=== PATIENT | female | born 1985 | race African-American/Black ===

== ENCOUNTER 2017-06-06 16:36 | Emergency (ER) | payer OTHER ==
[2017-06-06] MEDS: ONDANSETRON ODT 4 MG TAB.RAPDIS. PO (17:30)
[2017-06-06] MEDS: FAMOTIDINE 20 MG TABLET. PO (17:35)
[2017-06-06 18:08] LABS: OBC FLU VALID
== END 2017-06-06 18:48 | disposition home or self-care (01) ==
LOC: ER 16:36
DX: K21.9 Gastro-esophageal reflux disease without esophagitis (principal)
CPT/HCPCS: 87804; 87804-59; 99284; Q0162

== ENCOUNTER 2017-12-04 16:05 | Emergency (ER) | payer SELFPAY | END 2017-12-04 17:45 | disposition home or self-care (01) | LOC: ER 17:45 | DX: S63.501A Unspecified sprain of right wrist, initial encounter (principal); W23.1XXA Caught, crushed, jammed, or pinched between stationary objects, initial encounter; Y93.89 Activity, other specified; Y92.89 Other specified places as the place of occurrence of the external cause; Y99.8 Other external cause status; Z98.51 Tubal ligation status | CPT/HCPCS: 73110; 99284 ==